=== PATIENT | female | born 1975 | race Caucasian/White ===

== ENCOUNTER → 2017-09-21 | Outpatient (CLI) | payer OTHER ==
[~2017-09-21] MED LIST: ALEVE 220MG220 MG PO; ATIVAN 0.50.5 MG/TAB PO; BENADRYL25 M2 PO; DESYREL 50MG50 MG PO; EFFEXOR100 MG PO; FLEXERIL 1010 MG/TAB PO; FLEXERIL5 MG PO; IBU600 MG PO; LEVOXYL0.025 MG PO; NORCO 325 MG-51 TAB PO; WELLBUTRIN 100100 MG PO; ZOFRAN 4MG T4 MG/TAB PO
== END ==
LOC: COL.RAD 10:13
DX: N88.8 Other specified noninflammatory disorders of cervix uteri (principal)
CPT/HCPCS: A9585

== ENCOUNTER 2017-09-29 08:53 | Emergency (ER) | payer OTHER ==
[~2017-09-29] VITALS: Ht 157.5 cm; Wt 109.5 kg
[2017-09-29 09:04] VITALS: TEMP 98.7
[2017-09-29] MEDS ORDERED: MASON NATURAL2000 IU (09:11)
[2017-09-29] MEDS ORDERED: SYNTHROID0.2 MG/TAB PO (09:12)
[2017-09-29] MEDS ORDERED: ZOCOR 10MG10 MG PO (09:12)
[2017-09-29] MEDS ORDERED: FORTAMET500 M1 PO (09:12)
[2017-09-29] MEDS ORDERED: FISH OIL 1000MG1 CAP PO (09:12)
[2017-09-29 09:54] LABS: BASO % 0.5 % (0.0-2.0); EOS # 0.2 (0.0-0.7); EOS % 2.3 % (0-4.0); GRAN # 5.6 (1.4-6.5); GRAN % 64.5 % (42.2-75.2); HEMOGLOBIN 14.2 g/dl (12.5-16.0); LYMPH # 2.2 (1.2-3.4); LYMPH % 24.9 % (20.0-51.0); MEAN CELL VOLUME 86 fl (80.0-100.0); MEAN CORPUSCULAR HEMOGLOBIN 29 pg (27.0-31.0); MEAN CORPUSCULAR HGB CONC 34 g/dl (33.0-37.0); MEAN PLATELET VOLUME 10.8 fl (7.4-10.4); MONO # 0.7 (0.1-0.6); MONO % 7.5 % (1.7-9.3); PLATELET COUNT 247 K/mm3 (130-400); RED BLOOD COUNT 4.88 M/mm3 (4.10-5.30); REDCELL DISTRIBUTION WIDTH-CV 13.6 % (11.5-14.5)
[2017-09-29 10:10] LABS: ALANINE AMINOTRANSFERASE 106 U/L (9-52); ALBUMIN 3.9 gm/dL (3.5-5.0); ALKALINE PHOSPHATASE 95 U/L (50-136); ANION GAP 10 mmol/L (7-16); AST,SGOT 80 U/L (15-37); BILIRUBIN,TOTAL 0.5 mg/dL (0.0-1.0); BLOOD UREA NITROGEN 12 mg/dL (7-17); CALCIUM 8.5 mg/dL (8.4-10.2); CARBON DIOXIDE 27 mmol/L (22-30); CHLORIDE 104 mmol/L (98-107); CREATININE, serum 0.76 mg/dL (0.52-1.25); GLUCOSE 106 mg/dL (74-106); POTASSIUM 3.9 mmol/L (3.4-5.0); SODIUM 141 mmol/L (137-145); TOTAL PROTEIN 8.1 gm/dL (6.4-8.2)
[2017-09-29 10:23] LABS: TROPONIN-I < 0.012 ng/mL (0.000-0.034)
[2017-09-29] MEDS ORDERED: FLEXERIL 1010 MG/TAB PO (10:54)
[2017-09-29] MEDS ORDERED: NORCO 325 MG-51 TAB PO (10:54)
[2017-09-29 11:09] VITALS: BP 119/90; PULSE 83
== END 2017-09-29 11:11 | disposition home or self-care (01) ==
LOC: COL.ER 08:53
PROVIDERS: Nurse Practitioner
DX: M25.511 Pain in right shoulder (principal); R07.89 Other chest pain; E11.9 Type 2 diabetes mellitus without complications; E78.5 Hyperlipidemia, unspecified; F32.9 Major depressive disorder, single episode, unspecified; F41.9 Anxiety disorder, unspecified; F60.9 Personality disorder, unspecified; Z85.41 Personal history of malignant neoplasm of cervix uteri; Z79.84 Long term (current) use of oral hypoglycemic drugs; Z88.6 Allergy status to analgesic agent
CPT/HCPCS: J1170; J2360; J2405; J7030

== ENCOUNTER 2017-11-24 14:00 | Outpatient (RCR) | payer OTHER ==
[2017-10-19 09:11] VITALS: BP 146/117; PULSE 89; TEMP 98.3
[2017-10-19 09:56] LABS: HEMATOCRIT 38.6 % (37.0-47.0); HEMOGLOBIN 12.9 g/dl (12.5-16.0); MEAN CELL VOLUME 87 fl (80.0-100.0); MEAN CORPUSCULAR HEMOGLOBIN 29 pg (27.0-31.0); MEAN CORPUSCULAR HGB CONC 33 g/dl (33.0-37.0); PLATELET COUNT 268 K/mm3 (130-400); RED BLOOD COUNT 4.46 M/mm3 (4.10-5.30); REDCELL DISTRIBUTION WIDTH-CV 13.5 % (11.5-14.5)
[2017-10-19 10:03] LABS: ALBUMIN 3.6 gm/dL (3.5-5.0); BILIRUBIN,TOTAL 0.3 mg/dL (0.0-1.0); CALCIUM 8.4 mg/dL (8.4-10.2); CREATININE, serum 0.63 mg/dL (0.52-1.25); MAGNESIUM 1.8 mg/dL (1.6-2.3); TOTAL PROTEIN 7.3 gm/dL (6.4-8.2)
[2017-10-19 10:27] LABS: BAND 5 % (0-10); BASOPHIL 1 % (0-2); LYMPHOCYTE 22 % (20.0-51.0); NEUTROPHILS 70 % (42.0-75.2); PLATELET ESTIMATE NORMAL (NORMAL)
[2017-10-20 09:16] VITALS: BP 131/84; PULSE 92; TEMP 98
[2017-10-23 08:46] VITALS: BP 119/93; PULSE 93; TEMP 98.2
[2017-10-26 08:33] VITALS: BP 133/89; PULSE 86; TEMP 98.5
[2017-10-26 08:38] LABS: HEMATOCRIT 37.4 % (37.0-47.0); HEMOGLOBIN 12.7 g/dl (12.5-16.0); MEAN CELL VOLUME 86 fl (80.0-100.0); MEAN CORPUSCULAR HEMOGLOBIN 29 pg (27.0-31.0); MEAN CORPUSCULAR HGB CONC 34 g/dl (33.0-37.0); MEAN PLATELET VOLUME 9.9 fl (7.4-10.4); PLATELET COUNT 166 K/mm3 (130-400); RED BLOOD COUNT 4.33 M/mm3 (4.10-5.30); REDCELL DISTRIBUTION WIDTH-CV 13.6 % (11.5-14.5)
[2017-10-26 08:44] LABS: ALBUMIN 3.6 gm/dL (3.5-5.0); BILIRUBIN,TOTAL 0.3 mg/dL (0.0-1.0); CALCIUM 8.5 mg/dL (8.4-10.2); CREATININE, serum 0.69 mg/dL (0.52-1.25); POTASSIUM 3.6 mmol/L (3.4-5.0); TOTAL PROTEIN 7.2 gm/dL (6.4-8.2)
[2017-10-26 09:17] LABS: BAND 3 % (0-10); EOSINOPHIL 2 % (0-4); LYMPHOCYTE 21 % (20.0-51.0); NEUTROPHILS 70 % (42.0-75.2); PLATELET ESTIMATE NORMAL (NORMAL)
[2017-10-30 14:54] VITALS: BP 136/76; PULSE 105; TEMP 98.2
[2017-11-01 08:59] LABS: HEMOGLOBIN 12.2 g/dl (12.5-16.0); MEAN CELL VOLUME 87 fl (80.0-100.0); MEAN CORPUSCULAR HEMOGLOBIN 29 pg (27.0-31.0); MEAN CORPUSCULAR HGB CONC 34 g/dl (33.0-37.0); MEAN PLATELET VOLUME 9.7 fl (7.4-10.4); PLATELET COUNT 159 K/mm3 (130-400); RED BLOOD COUNT 4.17 M/mm3 (4.10-5.30); REDCELL DISTRIBUTION WIDTH-CV 14.1 % (11.5-14.5)
[2017-11-01 09:08] LABS: ALBUMIN 3.6 gm/dL (3.5-5.0); BILIRUBIN,TOTAL 0.3 mg/dL (0.0-1.0); CALCIUM 8.6 mg/dL (8.4-10.2); CREATININE, serum 0.68 mg/dL (0.52-1.25); POTASSIUM 3.7 mmol/L (3.4-5.0); TOTAL PROTEIN 7.2 gm/dL (6.4-8.2)
[2017-11-01 09:11] LABS: HEMATOCRIT 36.3 % (37.0-47.0)
[2017-11-01 09:45] LABS: BAND 5 % (0-10); LYMPHOCYTE 21 % (20.0-51.0); NEUTROPHILS 67 % (42.0-75.2)
[2017-11-01 09:46] LABS: PLATELET ESTIMATE NORMAL (NORMAL)
[2017-11-07 08:56] VITALS: BP 133/82; PULSE 98; TEMP 99.2
[2017-11-07 09:12] LABS: HEMOGLOBIN 11.9 g/dl (12.5-16.0); MEAN CELL VOLUME 86 fl (80.0-100.0); MEAN CORPUSCULAR HEMOGLOBIN 30 pg (27.0-31.0); MEAN CORPUSCULAR HGB CONC 35 g/dl (33.0-37.0); MEAN PLATELET VOLUME 9.5 fl (7.4-10.4); PLATELET COUNT 194 K/mm3 (130-400); RED BLOOD COUNT 4.02 M/mm3 (4.10-5.30); REDCELL DISTRIBUTION WIDTH-CV 13.9 % (11.5-14.5)
[2017-11-07 09:19] LABS: ALBUMIN 3.7 gm/dL (3.5-5.0); BILIRUBIN,TOTAL 0.4 mg/dL (0.0-1.0); CALCIUM 9.1 mg/dL (8.4-10.2); CREATININE, serum 0.67 mg/dL (0.52-1.25); MAGNESIUM 1.7 mg/dL (1.6-2.3); TOTAL PROTEIN 7.4 gm/dL (6.4-8.2)
[2017-11-07 09:25] LABS: HEMATOCRIT 34.5 % (37.0-47.0)
[2017-11-07 12:21] LABS: ANISOCYTOSIS 2+; BAND 11 % (0-10); EOSINOPHIL 2 % (0-4); LYMPHOCYTE 17 % (20.0-51.0); MICROCYTOSIS 1+; NEUTROPHILS 69 % (42.0-75.2); PLATELET ESTIMATE NORMAL (NORMAL)
[2017-11-10 08:14] VITALS: BP 133/83; PULSE 74; TEMP 98.5
[2017-11-14 08:29] VITALS: BP 138/85; PULSE 103; TEMP 98.6
[2017-11-14 08:43] LABS: HEMOGLOBIN 11.5 g/dl (12.5-16.0); MEAN CELL VOLUME 87 fl (80.0-100.0); MEAN CORPUSCULAR HEMOGLOBIN 30 pg (27.0-31.0); MEAN CORPUSCULAR HGB CONC 34 g/dl (33.0-37.0); MEAN PLATELET VOLUME 9.4 fl (7.4-10.4); PLATELET COUNT 185 K/mm3 (130-400); RED BLOOD COUNT 3.86 M/mm3 (4.10-5.30); REDCELL DISTRIBUTION WIDTH-CV 14.9 % (11.5-14.5)
[2017-11-14 08:46] LABS: HEMATOCRIT 33.5 % (37.0-47.0)
[2017-11-14 08:54] LABS: ALBUMIN 3.6 gm/dL (3.5-5.0); BILIRUBIN,TOTAL 0.4 mg/dL (0.0-1.0); CALCIUM 8.8 mg/dL (8.4-10.2); CREATININE, serum 0.7 mg/dL (0.52-1.25); MAGNESIUM 1.8 mg/dL (1.6-2.3); POTASSIUM 4.3 mmol/L (3.4-5.0); TOTAL PROTEIN 7.3 gm/dL (6.4-8.2)
[2017-11-14 08:59] LABS: BAND 5 % (0-10); EOSINOPHIL 2 % (0-4); LYMPHOCYTE 23 % (20.0-51.0); NEUTROPHILS 66 % (42.0-75.2); PLATELET ESTIMATE NORMAL (NORMAL)
[2017-11-14 09:00] LABS: POLYCHROMASIA 1+
[2017-11-17 15:03] VITALS: BP 130/86; PULSE 97; TEMP 98.5
[2017-11-22 10:45] VITALS: BP 133/85; PULSE 94; TEMP 98.8
[2017-11-22 11:02] LABS: HEMOGLOBIN 11.1 g/dl (12.5-16.0); MEAN CELL VOLUME 88 fl (80.0-100.0); MEAN CORPUSCULAR HEMOGLOBIN 30 pg (27.0-31.0); MEAN CORPUSCULAR HGB CONC 34 g/dl (33.0-37.0); MEAN PLATELET VOLUME 9.5 fl (7.4-10.4); PLATELET COUNT 168 K/mm3 (130-400); REDCELL DISTRIBUTION WIDTH-CV 15.6 % (11.5-14.5)
[2017-11-22 11:06] LABS: HEMATOCRIT 32.4 % (37.0-47.0)
[2017-11-22 11:16] LABS: ALBUMIN 3.7 gm/dL (3.5-5.0); BILIRUBIN,TOTAL 0.5 mg/dL (0.0-1.0); CALCIUM 8.9 mg/dL (8.4-10.2); CREATININE, serum 0.66 mg/dL (0.52-1.25); POTASSIUM 3.7 mmol/L (3.4-5.0); TOTAL PROTEIN 7.2 gm/dL (6.4-8.2)
[2017-11-22 12:07] LABS: ANISOCYTOSIS 1+; BAND 8 % (0-10); LYMPHOCYTE 32 % (20.0-51.0); NEUTROPHILS 56 % (42.0-75.2); OVALOCYTES 1+; PLATELET ESTIMATE NORMAL (NORMAL)
[~2017-11-24] VITALS: Ht 157.5 cm; Wt 109.7 kg
[~2017-11-24 14:00] MED LIST changes: +FISH OIL 1000MG1 CAP PO; +FORTAMET500 M1 PO; +MASON NATURAL2000 IU; +SYNTHROID0.2 MG/TAB PO; +ZOCOR 10MG10 MG PO
[2017-11-24 14:23] VITALS: BP 133/88; PULSE 96; TEMP 98.6
== END 2017-11-24 15:15 | disposition home or self-care (01) ==
LOC: EUO 14:00
PROVIDERS: Internal Medicine
DX: Z45.2 Encounter for adjustment and management of vascular access device (principal); Z95.828 Presence of other vascular implants and grafts; C53.0 Malignant neoplasm of endocervix
CPT/HCPCS: C1751; C1894; J1644

== ENCOUNTER 2018-08-17 15:35 | Emergency (ER) | payer OTHER ==
[~2018-08-17] VITALS: Ht 157.5 cm; Wt 104.5 kg
[2018-08-17 16:14] VITALS: TEMP 98.4
[2018-08-17 20:09] LABS: BASO % 0.5 % (0.0-2.0); EOS # 0.2 (0.0-0.7); EOS % 3.7 % (0-4.0); GRAN # 2.4 (1.4-6.5); GRAN % 60.5 % (42.2-75.2); HEMATOCRIT 39.8 % (37.0-47.0); HEMOGLOBIN 13.4 g/dl (12.5-16.0); LYMPH # 1.1 (1.2-3.4); LYMPH % 27.9 % (20.0-51.0); MEAN CELL VOLUME 88 fl (80.0-100.0); MEAN CORPUSCULAR HEMOGLOBIN 30 pg (27.0-31.0); MEAN CORPUSCULAR HGB CONC 34 g/dl (33.0-37.0); MEAN PLATELET VOLUME 10.4 fl (7.4-10.4); MONO # 0.3 (0.1-0.6); MONO % 7.2 % (1.7-9.3); PLATELET COUNT 208 K/mm3 (130-400); RED BLOOD COUNT 4.54 M/mm3 (4.10-5.30); REDCELL DISTRIBUTION WIDTH-CV 13.8 % (11.5-14.5)
[2018-08-17 20:13] LABS: ALANINE AMINOTRANSFERASE 101 U/L (9-52); ALBUMIN 3.9 gm/dL (3.5-5.0); ALKALINE PHOSPHATASE 97 U/L (50-136); ANION GAP 7 mmol/L (7-16); AST,SGOT 84 U/L (15-37); BILIRUBIN,TOTAL 0.5 mg/dL (0.0-1.0); BLOOD UREA NITROGEN 11 mg/dL (7-17); CARBON DIOXIDE 30 mmol/L (22-30); CHLORIDE 104 mmol/L (98-107); CREATININE, serum 0.77 mg/dL (0.52-1.25); GLUCOSE 116 mg/dL (74-106); LIPASE 58 U/L (23-300); POTASSIUM 3.5 mmol/L (3.4-5.0); SODIUM 141 mmol/L (137-145); TOTAL PROTEIN 7.4 gm/dL (6.4-8.2)
[2018-08-17 20:25] LABS: TROPONIN-I < 0.012 ng/mL (0.000-0.035)
[2018-08-17] MEDS ORDERED: PRIL40 PO (21:12)
[2018-08-17] MEDS ORDERED: FLEXERIL 1010 MG/TAB PO (21:12)
[2018-08-17 21:45] VITALS: BP 133/87; PULSE 74
== END 2018-08-17 21:50 | disposition home or self-care (01) ==
LOC: COL.ER 15:35
PROVIDERS: Emergency Medicine
DX: S16.1XXA Strain of muscle, fascia and tendon at neck level, initial encounter (principal); K21.9 Gastro-esophageal reflux disease without esophagitis; R07.89 Other chest pain; R20.2 Paresthesia of skin; E66.9 Obesity, unspecified; X58.XXXA Exposure to other specified factors, initial encounter
CPT/HCPCS: J1885

== ENCOUNTER 2019-05-21 21:02 | Emergency (ER) | payer OTHER ==
[~2019-05-21] VITALS: Ht 157.5 cm; Wt 100.0 kg
[~2019-05-21 21:02] MED LIST changes: +PRIL40 PO
[2019-05-21 21:55] LABS: COLLECTION METHOD CLEAN CATCH
[2019-05-21 22:04] LABS: BASO % 0.3 % (0.0-2.0); EOS # 0.1 (0.0-0.7); EOS % 0.7 % (0-4.0); GRAN # 8.8 (1.4-6.5); GRAN % 83.2 % (42.2-75.2); HEMATOCRIT 42.1 % (37.0-47.0); HEMOGLOBIN 14.3 g/dl (12.5-16.0); LYMPH # 1.1 (1.2-3.4); LYMPH % 10.1 % (20.0-51.0); MEAN CELL VOLUME 86 fl (80.0-100.0); MEAN CORPUSCULAR HEMOGLOBIN 29 pg (27.0-31.0); MEAN CORPUSCULAR HGB CONC 34 g/dl (33.0-37.0); MEAN PLATELET VOLUME 10.5 fl (7.4-10.4); MONO # 0.6 (0.1-0.6); MONO % 5.4 % (1.7-9.3); PLATELET COUNT 239 K/mm3 (130-400); REDCELL DISTRIBUTION WIDTH-CV 14.2 % (11.5-14.5)
[2019-05-21 22:07] LABS: PH 7 (5-8); SQUAMOUS EPITHELIAL 0-2 /hpf; URINE APPEARANCE Clear; URINE BACTERIA None Seen /hpf; URINE BILIRUBIN Negative (NEGATIVE); URINE BLOOD Negative (NEGATIVE); URINE COLOR Straw; URINE GLUCOSE Negative (NEGATIVE); URINE KETONE Negative (NEGATIVE); URINE LEUKOCYTE ESTERASE Negative (NEGATIVE); URINE NITRATE Negative (NEGATIVE); URINE PROTEIN(semi-quant) Negative (NEGATIVE); URINE RBC None Seen /hpf; URINE UROBILINOGEN Negative (NEGATIVE)
[2019-05-21 22:32] LABS: ALBUMIN 4.6 gm/dL (3.5-5.0); BILIRUBIN,TOTAL 0.4 mg/dL (0.0-1.0); CALCIUM 9.1 mg/dL (8.4-10.2); CREATININE, serum 0.74 (0.52-1.25); POTASSIUM 3.5 mmol/L (3.4-5.0); TOTAL PROTEIN 8.3 gm/dL (6.4-8.2)
[2019-05-22 01:47] VITALS: BP 137/79; PULSE 95; TEMP 98.5
== END 2019-05-22 02:33 | disposition home or self-care (01) ==
LOC: COL.ER 21:02
PROVIDERS: Emergency Medicine
DX: R10.9 Unspecified abdominal pain (principal); E78.5 Hyperlipidemia, unspecified; E11.9 Type 2 diabetes mellitus without complications
CPT/HCPCS: A4216; J0696; J2405; J7030; Q9967

== ENCOUNTER 2019-11-05 11:38 | Emergency (ER) | payer OTHER ==
[~2019-11-05] VITALS: Ht 157.5 cm; Wt 105.9 kg
[2019-11-05 11:49] VITALS: TEMP 98
[2019-11-05 13:20] LABS: BASO % 0.8 % (0.0-2.0); EOS # 0.2 (0.0-0.7); EOS % 3.1 % (0-4.0); GRAN # 2.9 (1.4-6.5); HEMATOCRIT 42.4 % (37.0-47.0); HEMOGLOBIN 14.1 g/dl (12.5-16.0); LYMPH # 1.7 (1.2-3.4); LYMPH % 31.9 % (20.0-51.0); MEAN CELL VOLUME 87 fl (80.0-100.0); MEAN CORPUSCULAR HEMOGLOBIN 29 pg (27.0-31.0); MEAN CORPUSCULAR HGB CONC 33 g/dl (33.0-37.0); MEAN PLATELET VOLUME 10.7 fl (7.4-10.4); MONO # 0.5 (0.1-0.6); PLATELET COUNT 229 K/mm3 (130-400); RED BLOOD COUNT 4.87 M/mm3 (4.10-5.30); REDCELL DISTRIBUTION WIDTH-CV 14.1 % (11.5-14.5)
[2019-11-05 13:25] LABS: PROTHROMBIN TIME 10.8 SECONDS (9.7-12.8)
[2019-11-05 13:34] LABS: ALANINE AMINOTRANSFERASE 75 U/L (4-34); ALBUMIN 4.3 gm/dL (3.5-5.0); ALKALINE PHOSPHATASE 115 U/L (50-136); ANION GAP 8 mmol/L (7-16); AST,SGOT 61 U/L (15-37); BILIRUBIN,TOTAL 0.4 mg/dL (0.0-1.0); BLOOD UREA NITROGEN 7 mg/dL (7-17); CALCIUM 9.3 mg/dL (8.4-10.2); CARBON DIOXIDE 27 mmol/L (22-30); CHLORIDE 105 mmol/L (98-107); CREATININE, serum 0.58 (0.52-1.25); GLUCOSE 130 mg/dL (74-106); LIPASE 121 U/L (23-300); POTASSIUM 3.8 mmol/L (3.4-5.0); SODIUM 140 mmol/L (137-145); TOTAL PROTEIN 8.4 gm/dL (6.4-8.2)
[2019-11-05 13:36] LABS: D-DIMER < 200.00 ng/mLDDu (200-230)
[2019-11-05 13:48] LABS: TROPONIN-I < 0.012 ng/mL (0.000-0.035)
[2019-11-05] MEDS ORDERED: PROTONIX 40MG T40 MG PO (13:57)
[2019-11-05 16:22] VITALS: BP 143/95; PULSE 97
== END 2019-11-05 16:22 | disposition home or self-care (01) ==
LOC: COL.ER 11:38
PROVIDERS: Emergency Medicine
DX: R07.89 Other chest pain (principal); Z79.82 Long term (current) use of aspirin; Z85.41 Personal history of malignant neoplasm of cervix uteri
CPT/HCPCS: C9113; J7030

== ENCOUNTER 2019-12-11 06:44 | Day surgery (SDC) | payer OTHER ==
[~2019-12-11] VITALS: Ht 157.5 cm; Wt 107.3 kg
[2019-12-11] VITALS (7 sets, daily range): BP systolic 116–129; BP diastolic 72–91; PULSE 75–108; TEMP 98.3
[~2019-12-11 06:44] MED LIST changes: +OXYCODONE H5 MG/5 ML PO; +PROTONIX 40MG T40 MG PO; +ZOFRAN ODT8 MG PO
--- NOTE | 2019-12-11 10:45 | NUR ---
Report from Tiarra in [place], patient sleepy. Vss on O2. Patient request water. Orders clafified with nurse, Voicemail was left with first. Water provided from patient. She reports sputum, klenex & basin provided, but no blood noted in sputum
--- NOTE | 2019-12-11 11:22 | NUR ---
Patient reports pain in her throat & ears. Pain medication per orders. She has tolerated pudding & water. Reviewed with her importance of not having hot,spicy or cruncy foods. Soft diet lunch ordered. Her Vss. Patient does have history of sleep apnea & uses a Cpap at home, that she does not have here with her today. Medardo king.
--- NOTE | 2019-12-11 13:00 | NUR ---
Glenna Linder to resumes cares at this time
--- NOTE | 2019-12-11 13:18 | NUR ---
Pt resting in bed with eyes closed and even non-labored breathing. She did tolerate the mechanical soft diet and reports that the tylenol with codeine did help. Pt wants to rest for a while before she goes home. No other needs at this time, will continue to monitor
--- NOTE | 2019-12-11 14:15 | NUR ---
Reviewed discharge instuctions including prescription with pt and . Not questions at this time. Called Dr Cruz office regarding follow up appointment, stated none needed at this time. INT removed and pt escorted out via wheelchair.
== END 2019-12-11 14:30 | disposition home or self-care (01) ==
LOC: COL.ER 06:44 → SDCO 08:21 → COL.ER 08:21 → EDBEDREQ 08:22 → JCC 10:30 → SDCO 14:30
DX: J95.830 Postprocedural hemorrhage of a respiratory system organ or structure following a respiratory system procedure (principal); Z79.899 Other long term (current) drug therapy; Z88.5 Allergy status to narcotic agent
CPT/HCPCS: OP; J0330; J1100; J2405; J2704; J3010; J7120

== ENCOUNTER 2019-12-13 06:08 | Observation (INO) | payer OTHER ==
[2019-12-13] VITALS (9 sets, daily range): BP systolic 126–148; BP diastolic 76–106; PULSE 73–90; TEMP 98.3
[~2019-12-13] VITALS: Ht 157.5 cm; Wt 107.3 kg
[2019-12-13 06:54] LABS: PROTHROMBIN TIME 11.7 SECONDS (9.7-12.8)
[2019-12-13 06:56] LABS: BASO % 0.4 % (0.0-2.0); EOS # 0.2 (0.0-0.7); GRAN # 4.3 (1.4-6.5); GRAN % 57.9 % (42.2-75.2); HEMATOCRIT 44.1 % (37.0-47.0); HEMOGLOBIN 14.6 g/dl (12.5-16.0); LYMPH # 2.2 (1.2-3.4); LYMPH % 30.5 % (20.0-51.0); MEAN CELL VOLUME 87 fl (80.0-100.0); MEAN CORPUSCULAR HEMOGLOBIN 29 pg (27.0-31.0); MEAN CORPUSCULAR HGB CONC 33 g/dl (33.0-37.0); MEAN PLATELET VOLUME 10.1 fl (7.4-10.4); MONO # 0.6 (0.1-0.6); MONO % 7.9 % (1.7-9.3); PLATELET COUNT 237 K/mm3 (130-400); RED BLOOD COUNT 5.08 M/mm3 (4.10-5.30); REDCELL DISTRIBUTION WIDTH-CV 13.9 % (11.5-14.5)
[2019-12-13 06:57] LABS: PARTIAL THROMBOPLASTIN TIME 34.2 SECONDS (26.0-37.0)
--- NOTE | 2019-12-13 09:02 | NUR ---
Patient to room from PACU via bed. Patient says that she is feeling okay, just is tired. Encouraged patient to rest at this time. Patient denies needs at this time.
--- NOTE | 2019-12-13 10:57 | NUR ---
Patient up to bathroom with assist of spouse. Gait steady. Voids without difficulty and returns to bed. Patient applies CPAP so that she can test. Denies pain or additional needs/concerns at this time.
--- NOTE | 2019-12-13 12:30 | NUR ---
Having pain in throat and would like pain medication. Will administer Morphine as prescribed. Spouse in room with the patient. Patient eating mecahnical soft diet at this time.
--- NOTE | 2019-12-13 12:50 | NUR ---
Reviewed discharge instructions with the patient and her . Questions answered. Patient signs discharge paperwork. Discharge packet provided to the patient. Spouse assisting patient in getting dressed at this time.
--- NOTE | 2019-12-13 13:01 | NUR ---
Patient assisted out to patient 's truck via wheel chair at this time.
[2019-12-14] MEDS ORDERED: NORCO 325 MG-51 TAB PO (22:15)
== END 2019-12-13 13:01 | disposition home or self-care (01) ==
LOC: COL.ER 06:08 → SDCO 08:22 → SURG 08:53 → SDCO 08:58 → SURG 08:58
PROVIDERS: Emergency Medicine; ADMIT Otolaryngology
DX: J95.830 Postprocedural hemorrhage of a respiratory system organ or structure following a respiratory system procedure (principal); D68.0 Von Willebrand disease; I10 Essential (primary) hypertension; K21.9 Gastro-esophageal reflux disease without esophagitis; Z79.899 Other long term (current) drug therapy; Z88.8 Allergy status to other drugs, medicaments and biological substances; Z85.41 Personal history of malignant neoplasm of cervix uteri
CPT/HCPCS: J0330; J1100; J1170; J2270; J2405; J2704; J3010; J7120

== ENCOUNTER 2019-12-14 21:38 | Inpatient (IN) | payer OTHER ==
[~2019-12-14] VITALS: Ht 157.5 cm; Wt 106.3 kg
[2019-12-14] MEDS ORDERED: NORCO 325 MG-51 TAB PO (22:15)
[2019-12-14 22:17] LABS: BASO % 0.5 % (0.0-2.0); EOS # 0.1 (0.0-0.7); EOS % 1.3 % (0-4.0); GRAN # 5.1 (1.4-6.5); GRAN % 61.5 % (42.2-75.2); HEMATOCRIT 43.9 % (37.0-47.0); HEMOGLOBIN 14.4 g/dl (12.5-16.0); LYMPH # 2.4 (1.2-3.4); LYMPH % 29.2 % (20.0-51.0); MEAN CELL VOLUME 87 fl (80.0-100.0); MEAN CORPUSCULAR HEMOGLOBIN 29 pg (27.0-31.0); MEAN CORPUSCULAR HGB CONC 33 g/dl (33.0-37.0); MONO # 0.6 (0.1-0.6); MONO % 7.3 % (1.7-9.3); PLATELET COUNT 282 K/mm3 (130-400); RED BLOOD COUNT 5.04 M/mm3 (4.10-5.30); REDCELL DISTRIBUTION WIDTH-CV 14.4 % (11.5-14.5)
[2019-12-14 22:42] LABS: INR 1.1 (0.8-3.0); PROTHROMBIN TIME 11.8 SECONDS (9.7-12.8)
[2019-12-15] VITALS (15 sets, daily range): BP systolic 101–123; BP diastolic 52–77; PULSE 67–105; TEMP 97.4–99
--- NOTE | 2019-12-15 00:20 | NUR ---
Received patient from OR. Patient on O2 at 2lpm via NC. Reports pain on her right ear and states that her doctor is aware of that and it's normal for post tonsillectomy. She says pain is tolerable. She is afebrile. Blood pressure is normal. She asked for ice chips. Informed her she's on clear liquid diet.
--- NOTE | 2019-12-15 06:00 | NUR ---
Patient states she still have some coughing and she feels nauseous. Zofran IV PRN given.
--- NOTE | 2019-12-15 08:26 | NUR ---
Sitting up in bed with eyes open. Denies pain at this time. Only has pain with swallowing. Patient says that sometimes she feels like she has to cough or it is sore in her chest. Explained that we will keep an eye on these concerns. Patient denies additional needs at this time.
--- NOTE | 2019-12-15 09:25 | NUR ---
Patient having some nausea and asks if she can have medication for nausea. Reviewed with the patient when she had Zofran last and when she can have again. Patient says that some of the nausea may be due to not getting food to eat. Verbalizes understanding and denies needs at this time.
--- NOTE | 2019-12-15 11:20 | NUR ---
Patient requested pain medication with the JOWL TRIMMER. Brought pain medication in room and the patient says that she no longer needs the pain medication because the pain subsided on it's own. Rates pain 0/10 at this time. Offered medication for nausea as patient was having nausea earlier and the patient declines that medication as well. Lying in bed with eyes closed. Opens eyes when she is spoken to and then goes back to sleep.
--- NOTE | 2019-12-15 12:32 | NUR ---
Patient requests pain medication for 8/10 pain in ears that is sharp. Administered pain medication as prescribed. Patient sitting on edge of bed eating lunch.
--- NOTE | 2019-12-15 13:08 | NUR ---
Plan: To return home with Robby [phone] as care support and EMR. Patient indicated that she does not have a DPOA, and declined one at this time. The reside in [facility]. Assess: Sw met with patient at her bedside. Patient reports that she does not use and DME, and that she was independent before coming to the hospital Patient reported that her PCP is Dr. Jones and she does not have any upcoming appointments. Patient reported that she gets her medications from [facility] with no concerns. Patient declined a need for additional services at this time. Action: No additional concerns noted at this time. patient was educated about community resources.
[2019-12-15] MEDS ORDERED: AMICAR PO (13:40)
--- NOTE | 2019-12-15 17:48 | NUR ---
Sitting on edge of bed watching phone. Patient requests pain pill due to increasing pain in throat from eating. Will administer [place] as prescribed. Patient denies any additional needs at this time.
--- NOTE | 2019-12-15 20:40 | NUR ---
Assessment complete. Pt resting in bed. Up ad karli in room. Reports pain currently controlled. Requests pain med be given routinely through noc. Denies other needs at this time.
[2019-12-16 00:04] VITALS: BP 116/75; PULSE 68; TEMP 99
[2019-12-16 04:09] VITALS: BP 110/65; PULSE 85; TEMP 98.5
--- NOTE | 2019-12-16 08:00 | NUR ---
PATIENT IS ORIENTED BUT SLIGHTLY DROWSY THIS AM. VSS. PATIENT C/O THROAT PAIN AND WAS GIVEN PRN NORCO BY CORK PAINTER AND GRADER. PATIENT RECEIVING IV TXA FOR POST OP TONISL BLEEDING. PATIENT HAS HX OF A COAGULATION DISORDER AND IS HIGH RISK FOR BLEEDING. PATIENT HAS BEEN TAKING ORAL PILLS WITH APPLESAUCE TO HELP GET THEM DOWN. PATIENT ALSO REQUESTING PRN IV ZOFRAN BEFORE TXA DOSE, GIVEN. HEAD TO TOE ASSESSMENT WNL. PATIENT HOPING TO DISCHARGE HOME LATER TODAY. PATIENT SITITNG UP AT BEDSIDE WITH BREAKFAST TRAY. NO OTHER NEEDS. CALL LIGHT IN REACH.
[2019-12-16 08:14] VITALS: BP 114/67; PULSE 86; TEMP 99
[2019-12-16 11:43] VITALS: BP 119/68; PULSE 79; TEMP 98.2
[2019-12-16 15:47] VITALS: BP 101/60; PULSE 77; TEMP 98.4
--- NOTE | 2019-12-16 18:50 | NUR ---
PATIENT DISCHARGING HOME VIA WC TO PERSONAL VEHICLE WHERE IS WAITING. GAVE DISCHARGE INSTRUCTIONS, SCRIPTS SENT ELECTRONICALLY, AND F/U GIVEN. ANSWERED ALL QUESTIONS/CONCERNS. LEFT AC IV DC'D, COVERED SITE WITH GAUZE & TAPE. PATIENT PACKED PERSONAL BELONGINGS.
== END 2019-12-16 18:50 | disposition home or self-care (01) | DRG 909 ==
LOC: COL.ER 21:38 → JCC 23:37
PROVIDERS: Nurse Practitioner; ADMIT Student in an Organized Health Care Education/Training Program
PROC: 0W3Q7ZZ Control Bleeding in Respiratory Tract, Via Natural or Artificial Opening (ICD-10-PCS; principal; 2019-12-14 23:00)
DX: J95.830 Postprocedural hemorrhage of a respiratory system organ or structure following a respiratory system procedure (principal); K21.9 Gastro-esophageal reflux disease without esophagitis
CPT/HCPCS: J0330; J1100; J2405; J2704; J3010; J7030

== ENCOUNTER → 2019-12-19 | Outpatient (CLI) | payer OTHER ==
[~2019-12-19] MED LIST changes: +AMICAR PO
[2019-12-19 12:46] LABS: ALBUMIN 4.2 gm/dL (3.5-5.0); BILIRUBIN,TOTAL 0.5 mg/dL (0.0-1.0); CALCIUM 9.1 mg/dL (8.4-10.2); CREATININE, serum 0.75 (0.52-1.25); POTASSIUM 4.2 mmol/L (3.4-5.0); TOTAL PROTEIN 8.1 gm/dL (6.4-8.2)
[2019-12-23 09:20] LABS: CK total - for Isoenzymes 79 U/L (26 - 192)
== END ==
LOC: COL.LAB 12:09
PROVIDERS: Otolaryngology
DX: M79.10 Myalgia, unspecified site (principal)

== ENCOUNTER 2020-08-06 05:29 | Emergency (ER) | payer OTHER ==
[~2020-08-06] VITALS: Ht 157.5 cm; Wt 109.1 kg
[2020-08-06 06:14] LABS: BASO % 0.3 % (0.0-2.0); EOS # 0.2 (0.0-0.7); EOS % 2.4 % (0-4.0); GRAN # 3.7 (1.4-6.5); GRAN % 60.7 % (42.2-75.2); HEMATOCRIT 42.4 % (37.0-47.0); HEMOGLOBIN 14.1 g/dl (12.5-16.0); LYMPH # 1.8 (1.2-3.4); LYMPH % 28.5 % (20.0-51.0); MEAN CELL VOLUME 87 fl (80.0-100.0); MEAN CORPUSCULAR HEMOGLOBIN 29 pg (27.0-31.0); MEAN CORPUSCULAR HGB CONC 33 g/dl (33.0-37.0); MEAN PLATELET VOLUME 10.4 fl (7.4-10.4); MONO # 0.5 (0.1-0.6); MONO % 7.9 % (1.7-9.3); PLATELET COUNT 253 K/mm3 (130-400); RED BLOOD COUNT 4.86 M/mm3 (4.10-5.30); REDCELL DISTRIBUTION WIDTH-CV 13.9 % (11.5-14.5)
[2020-08-06 06:24] LABS: ALANINE AMINOTRANSFERASE 95 U/L (4-34); ALBUMIN 4.4 gm/dL (3.5-5.0); ALKALINE PHOSPHATASE 120 U/L (50-136); ANION GAP 8 mmol/L (7-16); AST,SGOT 74 U/L (15-37); BILIRUBIN,TOTAL 0.5 mg/dL (0.0-1.0); BLOOD UREA NITROGEN 15 mg/dL (7-17); CALCIUM 9.4 mg/dL (8.4-10.2); CARBON DIOXIDE 26 mmol/L (22-30); CHLORIDE 106 mmol/L (98-107); CREATININE, serum 0.75 (0.52-1.25); GLUCOSE 126 mg/dL (74-106); POTASSIUM 3.6 mmol/L (3.4-5.0); SODIUM 140 mmol/L (137-145)
[2020-08-06 06:26] LABS: ACETAMINOPHEN < 10 ug/mL (10-30); ALCOHOL(ethanol),MEDICAL < 10 mg/dL; SALICYLATE < 1.0 mg/dL
[2020-08-06 06:29] LABS: COLLECTION METHOD CLEAN CATCH
[2020-08-06 06:48] LABS: PH 5 (5-8); URINE APPEARANCE Hazy; URINE BILIRUBIN Negative (NEGATIVE); URINE COLOR Yellow; URINE GLUCOSE Negative (NEGATIVE); URINE KETONE Negative (NEGATIVE); URINE NITRATE Negative (NEGATIVE); URINE PROTEIN(semi-quant) Negative (NEGATIVE); URINE UROBILINOGEN Negative (NEGATIVE)
[2020-08-06 06:49] LABS: MUCOUS Present /lpf; URINE BACTERIA None Seen /hpf; URINE BLOOD Negative (NEGATIVE); URINE LEUKOCYTE ESTERASE Trace (NEGATIVE); URINE RBC 0-2 /hpf
[2020-08-06 06:56] LABS: TRICYCLIC ANTIDEPRESS URINE NEGATIVE
[2020-08-06 09:25] VITALS: BP 177/80; PULSE 94; TEMP 98.2
== END 2020-08-06 09:25 | disposition home or self-care (01) ==
LOC: COL.ER 05:29
PROVIDERS: Emergency Medicine
DX: F43.22 Adjustment disorder with anxiety (principal); Z88.8 Allergy status to other drugs, medicaments and biological substances

== ENCOUNTER 2020-10-10 19:43 | Inpatient (IN) | payer OTHER ==
[2020-10-10 23:55] VITALS: BP 127/78; PULSE 107; TEMP 98.1
[2020-10-11] VITALS (12 sets, daily range): BP systolic 96–144; BP diastolic 52–80; PULSE 73–110; TEMP 97.4–98.5
--- NOTE | 2020-10-11 00:30 | NUR ---
Patient up from PACU at 2355. Patient is very drowsy, but responds appropriately. Midline abdomen insicion and abdomen lap site clean, dry, and intact. SCDs on bilateral lower extremities. Fluids infusing to right AC. Patient tolerating sips of water. No additional needs at this time. Call light in reach.
--- NOTE | 2020-10-11 02:30 | NUR ---
RT in setting up patient on a CPAP.
--- NOTE | 2020-10-11 02:35 | NUR ---
Patient reports having pain in her shoulder. Explained that this pain was probably gas and it is helpful to get up and walk. Patient refused and said she would try later.
--- NOTE | 2020-10-11 05:20 | NUR ---
Patient walked to the bathroom standby assist. Steady gait. Voided without difficulty.
[2020-10-11 06:37] LABS: HEMATOCRIT 40.2 % (37.0-47.0); MEAN CELL VOLUME 89 fl (80.0-100.0); MEAN CORPUSCULAR HEMOGLOBIN 29 pg (27.0-31.0); MEAN CORPUSCULAR HGB CONC 32 g/dl (33.0-37.0); MEAN PLATELET VOLUME 11.1 fl (7.4-10.4); PLATELET COUNT 245 K/mm3 (130-400); RED BLOOD COUNT 4.54 M/mm3 (4.10-5.30); REDCELL DISTRIBUTION WIDTH-CV 14.5 % (11.5-14.5)
[2020-10-11 06:48] LABS: ALBUMIN 3.8 gm/dL (3.5-5.0); BILIRUBIN,TOTAL 0.3 mg/dL (0.0-1.0); CALCIUM 8.7 mg/dL (8.4-10.2); CREATININE, serum 0.77 (0.52-1.25); POTASSIUM 4.4 mmol/L (3.4-5.0); TOTAL PROTEIN 7.3 gm/dL (6.4-8.2)
[2020-10-11 07:33] LABS: BAND 13 % (0-10); LYMPHOCYTE 3 % (20.0-51.0); NEUTROPHILS 83 % (42.0-75.2)
[2020-10-11 07:34] LABS: HYPOCHROMIA 1+; PLATELET ESTIMATE NORMAL (NORMAL)
--- NOTE | 2020-10-11 19:18 | NUR ---
Patient resting in bed at this time. Patient is alert and oriented, has been inidependent in room today, is moving well. Patient has requested some PRN pain medication for pain in her abdomen, reports relief after doese. Denies further needs, call bennett min.
--- NOTE | 2020-10-11 20:33 | NUR ---
PT A/O X3, AMBULATES IN ROOM AND GAIT IS STEADY. PT HAS C/O RIGHT SIDED ABDOMINAL PAIN RATED AT A 8/10 THAT IS DULL THAT IS ALWAYS THERE. PT WAS GIVEN PAIN MEDICATION. PT HAS NO OTHER CONCERNS OR NEEDS AT THIS TIME, CALL LIGHT WITHIN REACH.
[2020-10-12] VITALS (7 sets, daily range): BP systolic 115–165; BP diastolic 64–87; PULSE 63–90; TEMP 98–98.7
[2020-10-12 07:49] LABS: BASO % 0.2 % (0.0-2.0); EOS % 0.3 % (0-4.0); GRAN # 6.6 (1.4-6.5); GRAN % 73.1 % (42.2-75.2); LYMPH # 1.9 (1.2-3.4); LYMPH % 20.8 % (20.0-51.0); MEAN CELL VOLUME 88 fl (80.0-100.0); MEAN CORPUSCULAR HGB CONC 33 g/dl (33.0-37.0); MEAN PLATELET VOLUME 10.8 fl (7.4-10.4); MONO # 0.5 (0.1-0.6); MONO % 5.4 % (1.7-9.3); PLATELET COUNT 206 K/mm3 (130-400); RED BLOOD COUNT 3.81 M/mm3 (4.10-5.30); REDCELL DISTRIBUTION WIDTH-CV 14.6 % (11.5-14.5)
[2020-10-12 07:51] LABS: HEMATOCRIT 33.5 % (37.0-47.0); HEMOGLOBIN 10.9 g/dl (12.5-16.0); MEAN CORPUSCULAR HEMOGLOBIN 29 pg (27.0-31.0)
--- NOTE | 2020-10-12 08:04 | NUR ---
Patient awake this am. We discussed her pain and pain regiment. Patient up to the bathroom & voided. Now sitting up in chair. Continues with Ivf. Tolerating clear liquids. Denies nausea. Denies yet passing flatus, bowels hypoactive. abdominal incision gauze intact. Patient assisted with hygiene-fresh linens & warm wipes. Provided her with toothbrush & comb. Patient concerned about her Von Willebrand-we reviewed her hemoglobin level today.WIll monitor.
[2020-10-12 08:10] LABS: ALBUMIN 3.3 gm/dL (3.5-5.0); CALCIUM 8.3 mg/dL (8.4-10.2); CREATININE, serum 0.73 (0.52-1.25); PHOSPHOROUS 3.6 mg/dL (2.5-4.5); POTASSIUM 3.9 mmol/L (3.4-5.0)
--- NOTE | 2020-10-12 08:56 | NUR ---
Patient stand by assist to ambulate halls. Dyspnea on exertion. Weakness noted, worn out easy. Reports elevated pain with movement. Request pain pills, 2 tabs norco per orders. Patient ready to rest. Lights dimmed. She is wanting to take a nap. Will monitor.
--- NOTE | 2020-10-12 11:18 | NUR ---
Patient rested well. Offered walk, refused at this time. Report she will try again in an hour.
--- NOTE | 2020-10-12 11:41 | NUR ---
Several visit attempts; Photo Checker left card offering God's blessings to patient and information regarding the availability of spiritual care at our hospital.
--- NOTE | 2020-10-12 12:04 | NUR ---
Patient sitting up in chair. Tolerting clear liquids. Dyspnea with exertion remains. Patient 86% on room air. Continue O2 at 3L. She was also up and voided. Will monitor.
--- NOTE | 2020-10-12 12:21 | NUR ---
made aware of Low O2 sats. Chest xray ordered.
--- NOTE | 2020-10-12 15:24 | NUR ---
Radiology impressions called to , no new orders at this time. Patient up and ambulated halls again, did better this time. She reports SOB improved. belching, reports gas pain. Sitting in bathroom now.
--- NOTE | 2020-10-12 19:18 | NUR ---
Patient sitting up in chair. Visiting with her spouse. Kailee continues to manage pain. She continues to have belching, no flatus. Ivf per orders. Tolerating her clear liquid dinner tray without nausea. Vss on O2.
[2020-10-13 03:22] VITALS: BP 150/80; PULSE 80; TEMP 98.2
--- NOTE | 2020-10-13 06:36 | NUR ---
PATIENT AMBULATED IN THE HALLWAY AT 0445 DUE TO FEELING ANXIOUS. PATIENT AND THIS NURSE SAT IN THE HALLWAY AND TALKED FOR 25 MINUTES. PATIENT REPORTED FEELING BETTER. NO OTHER ISSUES NOTED OR REPORTED BY PATIENT.
[2020-10-13 07:12] VITALS: BP 148/88; PULSE 101; PULSE 96; TEMP 99.5
[2020-10-13 07:25] LABS: BASO % 0.3 % (0.0-2.0); EOS # 0.2 (0.0-0.7); EOS % 2.7 % (0-4.0); GRAN # 5.1 (1.4-6.5); GRAN % 67.8 % (42.2-75.2); HEMOGLOBIN 11.1 g/dl (12.5-16.0); LYMPH # 1.7 (1.2-3.4); LYMPH % 22.1 % (20.0-51.0); MEAN CELL VOLUME 88 fl (80.0-100.0); MEAN CORPUSCULAR HEMOGLOBIN 29 pg (27.0-31.0); MEAN CORPUSCULAR HGB CONC 33 g/dl (33.0-37.0); MEAN PLATELET VOLUME 10.9 fl (7.4-10.4); MONO # 0.5 (0.1-0.6); MONO % 6.8 % (1.7-9.3); PLATELET COUNT 212 K/mm3 (130-400); RED BLOOD COUNT 3.83 M/mm3 (4.10-5.30); REDCELL DISTRIBUTION WIDTH-CV 14.4 % (11.5-14.5)
[2020-10-13 07:27] LABS: HEMATOCRIT 33.8 % (37.0-47.0)
[2020-10-13 07:41] LABS: ALBUMIN 3.5 gm/dL (3.5-5.0); BILIRUBIN,TOTAL 0.4 mg/dL (0.0-1.0); CALCIUM 8.1 mg/dL (8.4-10.2); CREATININE, serum 0.72 (0.52-1.25); POTASSIUM 3.6 mmol/L (3.4-5.0); TOTAL PROTEIN 6.8 gm/dL (6.4-8.2)
--- NOTE | 2020-10-13 10:09 | NUR ---
Initial visit; Patient thanked [employer] Developer for looking in on her and offering prayer and God's blessings. Patient not only recovering from surgical procedure but is experiencing grief from the recent loss of her mother from COVID and is concerned about her dad who resides in [place].
[2020-10-13 11:17] VITALS: BP 118/73; PULSE 85; TEMP 99
--- NOTE | 2020-10-13 12:00 | NUR ---
Patient is doing ok this morning. She is slow moving around. She is passing flatus. She had some nausea after her walk, giving zofran. Her pain is better today, she stated. Incision is well approximated, gauze to left site is C/D/I. Gauze to midline has about a dime sized amount of dark red drainage. Patient is voiding without issues. No other changes at this time. Call light within reach. Patients temp was a little elevated at 99.5 and she continues to require oxygen. Encouraged her strongly to use her incentive spirometer and cough.
[2020-10-13 16:00] VITALS: BP 143/84; PULSE 89; TEMP 99.5
--- NOTE | 2020-10-13 16:16 | NUR ---
SW met with the patient to discuss discharge plan. The patient lives in [place] with her , Robby (ph#[phone]), and three adult children. She reports independence with ADLs and has a CPAP. The patient receives primary care at [facility] and states that she does not have a specific provider. She receives her medications from [facility] and reports no difficulties obtaining her meds. The patient does not have a DPOA-HC and she was not interested in completing one while here. The patient plans to return home with her family upon discharge. She is currently on 1-2 liters of oxygen and does not have home oxygen. SW to continue to monitor. *Discharge plan: home with family*
--- NOTE | 2020-10-13 18:00 | NUR ---
Patient has been doing well this afternoon. She is tolerated full liquid diet without issues. Dr Marmolejo stated she can start low fiber diet in the morning. No other changes at this time. Call light within reach. Also got an order to discontinue IVF's.
--- NOTE | 2020-10-13 20:00 | NUR ---
Patient assessed at this time. Alert and oriented x 4, and able to make needs known. Reports mild pain, but declines pain medication at this time. Peripheral INT to right AC. Denies SOB and dsypena. Respirations even and unlabored. On oxygen at 1 L/min via NC. LS CTA. Respirations even and unlabored. HRR. Capillary refill less than 3 seconds. Non-tenting skin turgor. BSAx4. Abdomen soft and non-tender. No edema. Voices no questions, needs, or concerns at this time. Resting in recliner with call light within reach. Continue to be able to pass gas, no BM so far this shift.
[2020-10-13 20:13] VITALS: BP 139/85; PULSE 88; TEMP 98.3
--- NOTE | 2020-10-13 22:05 | NUR ---
Patient complaining of pain to abdomen. Given PRN [place] for pain at this time. Explained to patient that she can have another pill if pain is not relieved in 45 minutes. Voiced understanding.
[2020-10-13 23:34] VITALS: BP 136/89; PULSE 100; TEMP 99.6
[2020-10-14 04:33] VITALS: BP 138/87; PULSE 96; TEMP 100
--- NOTE | 2020-10-14 05:44 | NUR ---
Patient has been resting in bed with call light within reach. Received PRN [place] twice this shift for pain. Recently received it due to pain and temp of 100. Voices no questions, needs, or concerns at this time.
[2020-10-14 06:25] LABS: ALBUMIN 3.7 gm/dL (3.5-5.0); BILIRUBIN,TOTAL 0.5 mg/dL (0.0-1.0); CALCIUM 8.6 mg/dL (8.4-10.2); CREATININE, serum 0.78 (0.52-1.25); POTASSIUM 3.7 mmol/L (3.4-5.0); TOTAL PROTEIN 7.1 gm/dL (6.4-8.2)
[2020-10-14 06:26] LABS: BASO % 0.4 % (0.0-2.0); EOS # 0.3 (0.0-0.7); EOS % 3.7 % (0-4.0); GRAN # 4.8 (1.4-6.5); GRAN % 69.7 % (42.2-75.2); HEMOGLOBIN 11.7 g/dl (12.5-16.0); LYMPH # 1.4 (1.2-3.4); LYMPH % 20.2 % (20.0-51.0); MEAN CELL VOLUME 88 fl (80.0-100.0); MEAN CORPUSCULAR HEMOGLOBIN 30 pg (27.0-31.0); MEAN CORPUSCULAR HGB CONC 34 g/dl (33.0-37.0); MEAN PLATELET VOLUME 10.7 fl (7.4-10.4); MONO # 0.4 (0.1-0.6); MONO % 5.9 % (1.7-9.3); PLATELET COUNT 259 K/mm3 (130-400); RED BLOOD COUNT 3.97 M/mm3 (4.10-5.30); REDCELL DISTRIBUTION WIDTH-CV 13.9 % (11.5-14.5)
[2020-10-14 06:30] LABS: HEMATOCRIT 34.9 % (37.0-47.0)
[2020-10-14 06:55] VITALS: TEMP 99.3
[2020-10-14 07:23] VITALS: BP 140/75; PULSE 88; TEMP 98
--- NOTE | 2020-10-14 10:09 | NUR ---
Follow-up visit; Patient thanked [employer] for looking in on her again and stated she is doing much better. [employer] wishes Ketty well and offered God's blessings.
[2020-10-14 11:04] VITALS: BP 141/87; PULSE 92; TEMP 99
--- NOTE | 2020-10-14 12:00 | NUR ---
Patient is doing well today. Her pain seems better controlled today. She is hoping to discharge home. She will get checked for oxygen before discharge to see if she needs home O2. Dr Marmolejo has seen her and is hoping to discharge her. She was finally able to have a bowel movement. No other changes at this time. Call light within reach.
[2020-10-14] MEDS ORDERED: NORCO 325 MG-51 TAB PO (15:28)
[2020-10-14 16:00] VITALS: BP 145/82; PULSE 94; TEMP 99.3
--- NOTE | 2020-10-14 17:40 | NUR ---
Patient is discharging home. Discussed discharge instructions with patient and her . INT discontinued. Explained when follow up appointment is. Explained she has a prescription to coal picker a the pharmacy for norco. Her is packing up her belongings. She decided to shower before discharge. Copies of discharge instructions sent with patient.
== END 2020-10-14 18:00 | disposition home or self-care (01) | DRG 330 ==
LOC: SDCO 19:43 → SURG 23:57 → SDCO 10-12 09:30 → SURG 10-12 09:31
PROVIDERS: ADMIT Surgery
PROC: 0DTH0ZZ Resection of Cecum, Open Approach (ICD-10-PCS; principal; 2020-10-10 20:00)
PROC: 0DJD4ZZ Inspection of Lower Intestinal Tract, Percutaneous Endoscopic Approach (ICD-10-PCS; 2020-10-10 20:00)
DX: K35.33 Acute appendicitis with perforation, localized peritonitis, and gangrene, with abscess (principal); D68.0 Von Willebrand disease; R09.02 Hypoxemia; E87.6 Hypokalemia; D64.9 Anemia, unspecified; Z85.41 Personal history of malignant neoplasm of cervix uteri; Z92.21 Personal history of antineoplastic chemotherapy; Z92.3 Personal history of irradiation; Z53.31 Laparoscopic surgical procedure converted to open procedure
CPT/HCPCS: A9284; J0330; J0690; J1100; J1170; J2405; J2550; J2704; J7120

== ENCOUNTER 2021-03-25 21:08 | Emergency (ER) | payer OTHER ==
[~2021-03-25] VITALS: Ht 157.5 cm; Wt 106.4 kg
[2021-03-25 23:03] LABS: HEMATOCRIT 41.3 % (37.0-47.0); HEMOGLOBIN 13.8 g/dl (12.5-16.0); MEAN CELL VOLUME 85 fl (80.0-100.0); MEAN CORPUSCULAR HEMOGLOBIN 29 pg (27.0-31.0); MEAN CORPUSCULAR HGB CONC 33 g/dl (33.0-37.0); MEAN PLATELET VOLUME 10.8 fl (7.4-10.4); PLATELET COUNT 247 K/mm3 (130-400); RED BLOOD COUNT 4.84 M/mm3 (4.10-5.30); REDCELL DISTRIBUTION WIDTH-CV 14.8 % (11.5-14.5)
[2021-03-25 23:21] LABS: ALANINE AMINOTRANSFERASE 106 U/L (0-55); ALBUMIN 3.8 gm/dL (3.5-5.0); ALKALINE PHOSPHATASE 102 U/L (0-750); ANION GAP 9 mmol/L (7-16); AST,SGOT 72 U/L (5-34); BILIRUBIN,TOTAL 0.5 mg/dL (0.2-1.2); BLOOD UREA NITROGEN 11 mg/dL (7-19); CALCIUM 9.2 mg/dL (8.4-10.2); CARBON DIOXIDE 25 mmol/L (22-29); CHLORIDE 108 mmol/L (98-107); GLUCOSE 150 mg/dL (70-99); POTASSIUM 3.6 mmol/L (3.5-4.5); SODIUM 142 mmol/L (136-145); TOTAL PROTEIN 7.7 gm/dL (6.2-8.1)
[2021-03-25 23:27] LABS: TROPONIN-I < 0.010 ng/mL (0.00-0.033)
[2021-03-25 23:44] LABS: COLLECTION METHOD CLEAN CATCH
[2021-03-25 23:49] LABS: MUCOUS Present /lpf; PH 5 (5-8); URINE APPEARANCE Clear; URINE BACTERIA Rare /hpf; URINE BILIRUBIN Negative (NEGATIVE); URINE BLOOD Negative (NEGATIVE); URINE COLOR Yellow; URINE GLUCOSE Negative (NEGATIVE); URINE KETONE Negative (NEGATIVE); URINE LEUKOCYTE ESTERASE Negative (NEGATIVE); URINE NITRATE Negative (NEGATIVE); URINE PROTEIN(semi-quant) Negative (NEGATIVE); URINE RBC 0-2 /hpf; URINE UROBILINOGEN Negative (NEGATIVE); URINE WBC 0-2 /hpf
[2021-03-26 00:25] VITALS: BP 153/101; PULSE 90; TEMP 98.3
[2021-03-26] MEDS ORDERED: NORVASC 5MG5 MG/TAB PO (13:07)
== END 2021-03-26 00:25 | disposition home or self-care (01) ==
LOC: COL.ER 21:08
PROVIDERS: Student in an Organized Health Care Education/Training Program
DX: I10 Essential (primary) hypertension (principal); R94.5 Abnormal results of liver function studies; R73.9 Hyperglycemia, unspecified

== ENCOUNTER 2021-03-26 10:44 | Emergency (ER) | payer OTHER ==
[~2021-03-26] VITALS: Ht 157.5 cm; Wt 106.4 kg
[2021-03-26 10:51] VITALS: TEMP 9.1
[2021-03-26 11:56] LABS: BASO % 0.7 % (0.0-2.0); EOS # 0.2 K/mm3 (0.0-0.7); EOS % 3.3 % (0-4.0); GRAN # 2.9 K/mm3 (1.4-6.5); GRAN % 54.6 % (42.2-75.2); HEMATOCRIT 40.7 % (37.0-47.0); HEMOGLOBIN 13.5 g/dl (12.5-16.0); LYMPH # 1.8 K/mm3 (1.2-3.4); LYMPH % 32.5 % (20.0-51.0); MEAN CELL VOLUME 86 fl (80.0-100.0); MEAN CORPUSCULAR HEMOGLOBIN 29 pg (27.0-31.0); MEAN CORPUSCULAR HGB CONC 33 g/dl (33.0-37.0); MEAN PLATELET VOLUME 10.7 fl (7.4-10.4); MONO # 0.5 K/mm3 (0.1-0.6); MONO % 8.5 % (1.7-9.3); PLATELET COUNT 228 K/mm3 (130-400); RED BLOOD COUNT 4.74 M/mm3 (4.10-5.30); REDCELL DISTRIBUTION WIDTH-CV 14.7 % (11.5-14.5)
[2021-03-26 12:19] LABS: ALBUMIN 3.8 gm/dL (3.5-5.0); BILIRUBIN,TOTAL 0.4 mg/dL (0.2-1.2); CALCIUM 9.4 mg/dL (8.4-10.2); CREATININE, serum 0.81 mg/dL (0.57-1.11); POTASSIUM 3.4 mmol/L (3.5-4.5); TOTAL PROTEIN 7.6 gm/dL (6.2-8.1)
[2021-03-26 12:34] LABS: TROPONIN-I 0.022 ng/mL (0.00-0.033)
[2021-03-26] MEDS ORDERED: NORVASC 5MG5 MG/TAB PO (13:07)
[2021-03-26 13:11] VITALS: BP 123/72; PULSE 80
== END 2021-03-26 13:22 | disposition home or self-care (01) ==
LOC: COL.ER 10:44
PROVIDERS: Personal Emergency Response Attendant
DX: I10 Essential (primary) hypertension (principal)

== ENCOUNTER 2022-08-10 00:59 | Emergency (ER) | payer OTHER ==
[~2022-08-10] VITALS: Ht 157.5 cm; Wt 107.3 kg
[~2022-08-10 00:59] MED LIST changes: +NORVASC 5MG5 MG/TAB PO
[2022-08-10 01:12] VITALS: TEMP 98.1
[2022-08-10 01:28] LABS: COLLECTION METHOD CLEAN CATCH
[2022-08-10 01:34] LABS: BASO % 0.4 % (0.0-2.0); EOS # 0.2 K/mm3 (0.0-0.7); EOS % 3.4 % (0.0-4.0); GRAN # 4.2 K/mm3 (1.4-6.5); GRAN % 62.4 % (42.2-75.2); HEMOGLOBIN 13.1 g/dl (12.5-16.0); LYMPH # 1.8 K/mm3 (1.2-3.4); LYMPH % 26.6 % (20.0-51.0); MEAN CELL VOLUME 86 fl (80.0-100.0); MEAN CORPUSCULAR HEMOGLOBIN 29 pg (27-31); MEAN CORPUSCULAR HGB CONC 34 g/dl (33.0-37.0); MEAN PLATELET VOLUME 10.9 fl (7.4-10.4); MONO # 0.5 K/mm3 (0.1-0.6); MONO % 6.9 % (1.7-9.3); PLATELET COUNT 288 K/mm3 (130-400); RED BLOOD COUNT 4.56 M/mm3 (4.10-5.30); REDCELL DISTRIBUTION WIDTH-CV 14.3 % (11.5-14.5)
[2022-08-10 01:41] LABS: PH 6.5 (5.0-8.5); URINE APPEARANCE Hazy (CLEAR/HAZY); URINE BLOOD TRACE-INTACT (NEGATIVE); URINE COLOR Yellow (YELLOW); URINE GLUCOSE TRACE (NEGATIVE); URINE KETONE Negative (NEGATIVE); URINE NITRATE Positive (NEGATIVE); URINE PROTEIN(semi-quant) Negative (NEGATIVE); URINE UROBILINOGEN 0.2 E.U/dL (0.2-1.0)
[2022-08-10 01:43] LABS: URINE BACTERIA Rare /hpf (NONE SEEN); URINE RBC 0-2 /hpf (0-2)
[2022-08-10] MEDS ORDERED: OMNICEF 300MG300 MG PO (01:46)
[2022-08-10 01:53] LABS: ALBUMIN 3.8 gm/dL (3.5-5.0); BILIRUBIN,TOTAL 0.3 mg/dL (0.2-1.2); CALCIUM 8.8 mg/dL (8.4-10.2); CREATININE, serum 0.83 mg/dL (0.57-1.11); TOTAL PROTEIN 7.7 gm/dL (6.2-8.1)
[2022-08-10 02:43] VITALS: BP 133/84; PULSE 64
== END 2022-08-10 02:43 | disposition home or self-care (01) ==
LOC: COL.ER 00:59
PROVIDERS: Family Medicine; Nurse Practitioner Primary Care
DX: N39.0 Urinary tract infection, site not specified (principal)
CPT/HCPCS: J0696; J1885; J7120

== ENCOUNTER 2022-11-09 19:44 | Emergency (ER) | payer OTHER ==
[~2022-11-09] VITALS: Ht 157.5 cm; Wt 104.1 kg
[~2022-11-09 19:44] MED LIST changes: +OMNICEF 300MG300 MG PO
[2022-11-09 19:59] VITALS: TEMP 98.3
[2022-11-09 20:52] LABS: BASO % 0.7 % (0.0-2.0); EOS # 0.1 K/mm3 (0.0-0.7); EOS % 2.4 % (0.0-4.0); GRAN % 68.9 % (42.2-75.2); HEMATOCRIT 38.2 % (37.0-47.0); HEMOGLOBIN 12.9 g/dl (12.5-16.0); LYMPH # 1.2 K/mm3 (1.2-3.4); MEAN CELL VOLUME 86 fl (80.0-100.0); MEAN CORPUSCULAR HEMOGLOBIN 29 pg (27-31); MEAN CORPUSCULAR HGB CONC 34 g/dl (33.0-37.0); MEAN PLATELET VOLUME 10.7 fl (7.4-10.4); MONO # 0.5 K/mm3 (0.1-0.6); MONO % 7.8 % (1.7-9.3); PLATELET COUNT 223 K/mm3 (130-400); RED BLOOD COUNT 4.46 M/mm3 (4.10-5.30); REDCELL DISTRIBUTION WIDTH-CV 14.3 % (11.5-14.5)
[2022-11-09 21:31] LABS: ALANINE AMINOTRANSFERASE 54 U/L (0-55); ALBUMIN 3.8 gm/dL (3.5-5.0); ALKALINE PHOSPHATASE 78 U/L (40-150); ANION GAP 9 mmol/L (7-16); AST,SGOT 37 U/L (5-34); BILIRUBIN,TOTAL 0.3 mg/dL (0.2-1.2); BLOOD UREA NITROGEN 13 mg/dL (7-19); CALCIUM 9.1 mg/dL (8.4-10.2); CARBON DIOXIDE 23 mmol/L (22-29); CHLORIDE 109 mmol/L (98-107); CREATININE, serum 0.93 mg/dL (0.57-1.11); GLUCOSE 108 mg/dL (70-99); POTASSIUM 3.9 mmol/L (3.5-4.5); SODIUM 141 mmol/L (136-145); TOTAL PROTEIN 7.3 gm/dL (6.2-8.1)
[2022-11-09 21:41] LABS: TROPONIN-I < 0.010 ng/mL (0.00-0.033)
[2022-11-09 22:47] VITALS: BP 132/70; PULSE 76
== END 2022-11-09 22:47 | disposition home or self-care (01) ==
LOC: COL.ER 19:44
PROVIDERS: Emergency Medicine
DX: R42 Dizziness and giddiness (principal); N39.0 Urinary tract infection, site not specified; Z87.891 Personal history of nicotine dependence
CPT/HCPCS: J7030

== ENCOUNTER 2023-07-01 22:15 | Emergency (ER) | payer OTHER ==
[~2023-07-01] VITALS: Ht 157.5 cm; Wt 105.5 kg
[2023-07-01 22:28] VITALS: TEMP 98.2
[2023-07-01] MEDS ORDERED: NS 1,000 ML IV ONE (23:15)
[2023-07-01 23:28] LABS: BASO % 0.4 % (0.0-2.0); EOS # 0.2 K/mm3 (0.0-0.7); EOS % 3.6 % (0.0-4.0); GRAN # 2.7 K/mm3 (1.4-6.5); GRAN % 53.8 % (42.2-75.2); HEMATOCRIT 39.7 % (37.0-47.0); HEMOGLOBIN 13.1 g/dl (12.5-16.0); LYMPH # 1.7 K/mm3 (1.2-3.4); LYMPH % 33.7 % (20.0-51.0); MEAN CELL VOLUME 87 fl (80.0-100.0); MEAN CORPUSCULAR HEMOGLOBIN 29 pg (27-31); MEAN CORPUSCULAR HGB CONC 33 g/dl (33.0-37.0); MONO # 0.4 K/mm3 (0.1-0.6); MONO % 8.3 % (1.7-9.3); PLATELET COUNT 218 K/mm3 (130-400); RED BLOOD COUNT 4.57 M/mm3 (4.10-5.30); REDCELL DISTRIBUTION WIDTH-CV 14.3 % (11.5-14.5)
[2023-07-01 23:49] LABS: ALANINE AMINOTRANSFERASE 35 U/L (0-55); ALBUMIN 3.7 gm/dL (3.5-5.0); ALKALINE PHOSPHATASE 86 U/L (40-150); ANION GAP 12 mmol/L (7-16); AST,SGOT 27 U/L (5-34); BILIRUBIN,TOTAL 0.4 mg/dL (0.2-1.2); BLOOD UREA NITROGEN 15 mg/dL (7-19); C-REACTIVE PROTEIN 0.06 mg/dL (0.00-0.50); CALCIUM 9.1 mg/dL (8.4-10.2); CARBON DIOXIDE 24 mmol/L (22-29); CHLORIDE 107 mmol/L (98-107); CREATININE, serum 0.87 mg/dL (0.57-1.11); GLUCOSE 133 mg/dL (70-99); POTASSIUM 3.6 mmol/L (3.5-4.5); SODIUM 143 mmol/L (136-145); TOTAL PROTEIN 7.2 gm/dL (6.2-8.1)
[2023-07-01 23:59] LABS: TROPONIN-I < 0.010 ng/mL (0.00-0.033)
[2023-07-02] MEDS ORDERED: ANTIVERT 25MG25 MG PO (01:25)
[2023-07-02 01:26] VITALS: BP 124/78; PULSE 75
== END 2023-07-02 01:35 | disposition home or self-care (01) ==
LOC: COL.ER 22:15
PROVIDERS: Nurse Practitioner
DX: R42 Dizziness and giddiness (principal)
CPT/HCPCS: J3360; J7030